=== PATIENT | male | born 1990 | race African-American/Black ===

== ENCOUNTER 2017-05-01 09:21 | Emergency (ER) | payer SELFPAY ==
[~2017-05-01] VITALS: Ht 190.5 cm; Wt 102.1 kg
[2017-05-01 09:36] VITALS: BP 156/110
[2017-05-01] MEDS ORDERED: KETOROLAC TROMETHAMINE 30 MG/ML INJ. IV ONE (10:15)
[2017-05-01] MEDS ORDERED: KETOROLAC TROMETHAMINE 60 MG/2 ML INJ. IM ONE (10:30)
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
== END 2017-05-01 12:56 | disposition home or self-care (01) ==
LOC: ER 09:21
DX: S20.211A Contusion of right front wall of thorax, initial encounter (principal); S50.01XA Contusion of right elbow, initial encounter; S70.01XA Contusion of right hip, initial encounter; V43.62XA Car passenger injured in collision with other type car in traffic accident, initial encounter; Y93.89 Activity, other specified; Y92.410 Unspecified street and highway as the place of occurrence of the external cause; Y99.8 Other external cause status
CPT/HCPCS: 71101; 73080; 73502; 96372; 99284; J1885